=== PATIENT | male | born 1950 | race Caucasian/White ===

== ENCOUNTER 2018-10-14 11:05 | Outpatient (CLI) | payer MEDICARE ==
[~2018-10-14] VITALS: Ht 177.8 cm; Wt 93.2 kg
[2018-10-14 13:15] VITALS: BP 138/60; Ht 177.8 cm; Wt 93.2 kg
--- NOTE | 2018-10-14 15:31 | NUR ---
PATIENT TOLERATING TRANSFUSION WITHOUT SIGNS OR SYMPTOMS OF REACTION. LYING IN BED, AWAKE, WATCHING TV, DENIES NEEDS OR COMPLAINTS
--- NOTE | 2018-10-14 16:50 | NUR ---
SECOND UNIT PRBC TRANSFUSION COMPLETE, IV FLUSHING WITH NS. PATIENT WITHOUT SIGNS OR SYMPTOMS OF TRANSFUSION REACTION. DENIES NEEDS OR COMPLAINTS. UNDERSTANDS NEED TO WAIT 30 MINUTES POST TRANSFUSION BEFORE DISCHARGE
== END 2018-10-14 16:50 | disposition home or self-care (01) ==
LOC: D.OPS 11:05
PROVIDERS: ATTEND Legal Medicine
DX: D64.81 Anemia due to antineoplastic chemotherapy (principal); E29.1 Testicular hypofunction; C94.6 Myelodysplastic disease, not elsewhere classified; D47.3 Essential (hemorrhagic) thrombocythemia

== ENCOUNTER → 2018-11-03 14:44 | Outpatient (CLI) | payer MEDICARE ==
[2018-10-14 13:15] VITALS: BMI 29.4
[2018-11-03 16:10] LABS: HEMATOCRIT 27.2 % (42.0-54.0); HEMOGLOBIN 8.7 g/dL (13.5-17.5); MCH 28.2 pg (26.0-34.0); MEAN PLATELET VOLUME 10.1 fL (7.4-10.4); PLATELET COUNT 262 10x3/uL (130-400); RBC 3.09 10x6/uL (4.20-6.10); RDW 19.3 % (11.5-14.5); WBC 11.3 10x3/uL (4.8-10.8)
[2018-11-03 16:33] LABS: EOSINOPHILS 3 % (0-7); LYMPHOCYTES 14 % (15-50); NEUTROPHILS 83 % (40-80); PLATELET ESTIMATE NORMAL
== END | disposition home or self-care (01) ==
LOC: D.LABREF 14:44
DX: D64.81 Anemia due to antineoplastic chemotherapy (principal)